=== PATIENT | male | born 1980 | race Hispanic/Latino ===

== ENCOUNTER 2019-12-24 02:12 | Inpatient (IN) | payer SELFPAY ==
[~2019-12-24] VITALS: Ht 172.7 cm; Wt 93.8 kg
[2019-12-24] MEDS ORDERED: ONDANSETRON HCL 4 MG/2 ML VIAL ONE (02:35)
[2019-12-24 02:55] LABS: BASOPHILS % (AUTO) 0.4 % (0.0-5.0); EOSINOPHILS % (AUTO) 0.3 % (0.0-8.0); HEMATOCRIT 35.4 % (42-54); LYMPHOCYTES % (AUTO) 17.3 % (21.0-51.0); MEAN CORPUSCULAR HEMOGLOBIN 47.2 pg (27.0-33.0); MEAN CORPUSCULAR HGB CONC 49.7 g/dL (32.0-36.0); MEAN CORPUSCULAR VOLUME 94.9 fL (79-99); MONOCYTES % (AUTO) 4.4 % (3.0-13.0); NEUTROPHILS % (AUTO) 77.1 % (40.0-77.0); PLATELET COUNT (AUTO) 167 K/uL (130-400); RED BLOOD CELL COUNT(AUTO) 3.73 MIL/uL (4.50-6.20); RED CELL DISTRIBUTION WIDTH 13.3 % (11.0-15.5); WHITE BLOOD COUNT (AUTO) 9.5 K/uL (4.8-10.8)
[2019-12-24 02:58] LABS: APPEARANCE,URINE Clear (CLEAR); BILIRUBIN,URINE Negative (NEGATIVE); COLOR,URINE Yellow (YELLOW); GLUCOSE, URINE (UA) Negative (NEGATIVE); KETONES,URINE Negative (NEGATIVE); LEUKOCYTE ESTERASE ,URINE Negative (NEGATIVE); NITRATE,URINE Negative (NEGATIVE); OCCULT BLOOD,URINE Negative (NEGATIVE); PH,URINE 5.5 (5.0-8.0); PROTEIN,URINE Negative (NEGATIVE); UROBILINOGEN,URINE 0.2 mg/dL (0.2-1.0)
[2019-12-24 03:09] LABS: POTASSIUM 4.4 mmol/L (3.5-5.1)
[2019-12-24 03:58] LABS: BILIRUBIN,TOTAL 0.5 mg/dL (0.2-1.0); CREATININE 0.9 mg/dL (0.5-1.5)
[2019-12-24 04:00] LABS: ALBUMIN 3.2 g/dL (3.5-5.0); TOTAL PROTEIN, SERUM 5.8 g/dL (6.0-8.3)
[2019-12-24] MEDS ORDERED: MORPHINE SULFATE 4 MG/1ML SYG ONE ×2 (04:27→06:56)
[2019-12-24] MEDS ORDERED: LACTULOSE 20 GM/30 ML UDCUP PO PRN (05:45)
[2019-12-24] MEDS ORDERED: MORPHINE SULFATE 2 MG/ML 1ML SYG IV PRN (05:45)
[2019-12-24] MEDS ORDERED: ACETAMINOPHEN 325 MG TAB PO PRN ×2 (05:45)
[2019-12-24 05:46] LABS: AMPHET/METH SCREEN,URINE NEGATIVE (NEGATIVE); BARBITURATE SCREEN, URINE NEGATIVE (NEGATIVE); BENZODIAZEPINES SCREEN,URINE NEGATIVE (NEGATIVE); CANNABINOID SCREEN,URINE POSITIVE (NEGATIVE); COCAINE SCREEN,URINE POSITIVE (NEGATIVE); OPIATE SCREEN,URINE NEGATIVE (NEGATIVE); PHENCYCLIDINE SCREEN,URINE NEGATIVE (NEGATIVE)
[2019-12-24] MEDS ORDERED: PHARMACY COMMUNICATION MISC PRN (06:00)
[2019-12-24] MEDS ORDERED: LORAZEPAM 2 MG/ML 1 ML VIAL IVP PRN ×2 (06:00)
[2019-12-24] MEDS ORDERED: CHLORDIAZEPOXIDE HCL 25 MG CAP PO PRN ×2 (06:00)
[2019-12-24 08:00] VITALS: BP 148/91
--- NOTE | 2019-12-24 08:00 | NUR ---
ADMITTED FROM ED VIA STRETCHER. AAOX3, RESP.'S EVEN AND UNLABORED. DENIES ANY CURRENT PAIN, DENIES ANY SOB. ORIENTED TO ROOM AND SURROUNDINGS. COMPLETE ASSESSMENT DONE. CALL LIGHT WITHIN REACH, VERBALIZED ABILITY TO USE. BED LOW, SIDE RAILS UP X2.
[2019-12-24] MEDS ORDERED: THIAMINE HCL 100 MG/ML 2ML VIAL IM SCH (09:00)
[2019-12-24] MEDS: SODIUM CHLORIDE 0.9% 1000ML 1,000 ML IV SCH ×4 (09:05→21:32)
[2019-12-24] MEDS: FOLIC ACID 1 MG TABLET PO SCH (09:05)
[2019-12-24] MEDS: MULTIVITAMIN TABLET PO SCH (09:05)
[2019-12-24] MEDS: FAMOTIDINE/PF 20 MG/2 ML VIAL IV SCH ×2 (09:06→21:14)
[2019-12-24] MEDS: ENOXAPARIN SODIUM 40 MG/0.4 ML SYRINGE SQ SCH (09:06)
[2019-12-24] MEDS: THIAMINE HCL 100 MG/ML 2ML VIAL IV SCH (10:00)
[2019-12-24 11:47] VITALS: BP 114/73
--- NOTE | 2019-12-24 13:51 | NUR ---
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 Hx drinking/drugs. counselled, states is registered w [facility]. Advised Re Good Rx, verbalized understanding. lives w girlfriend, different from face sheet - updated. dc plan home Addendum: 12/24/19 at 1357 by TYLER CAMEJO RN CM Amended: Links added.
[2019-12-24 16:12] VITALS: BP 113/80
[2019-12-24] MEDS ORDERED: HYDROMORPHONE HCL 0.5 MG/0.5 ML ML ONE (17:19)
[2019-12-24 20:03] VITALS: BP 123/77
[2019-12-24] MEDS: HYDROMORPHONE HCL 2 MG/ML VIAL IVP PRN (21:21)
--- NOTE | 2019-12-24 22:15 | NUR ---
[facility] called pt to transfer in ICU as ordered by Dr. Moreno for Insulin drip. Also ordered to consult Pulmonology in AM ( 12/25/19).
--- NOTE | 2019-12-24 22:35 | NUR ---
Informed housekeeper caregiver regarding order of transfer to ICU. To call back once room is available.
[2019-12-24 23:38] VITALS: BP 104/62
[2019-12-25] VITALS (13 sets, daily range): BP systolic 93–110; BP diastolic 57–72
--- NOTE | 2019-12-25 00:10 | NUR ---
K+ : 3.2 On-call hospitalist made aware with an order to place pt on potassium protocol. Addendum: 12/25/19 at 0543 by DANIEL MERCADO RN RN K+ : 3.0 not 3.2
[2019-12-25] MEDS: POTASSIUM CHLORIDE 20MEQ/100ML 100 ML IV PRN ×4 (00:25→19:59)
[2019-12-25] MEDS: LIDOCAINE HCL-MPF 1% 2ML VIAL IV PRN ×3 (00:26→19:59)
[2019-12-25] MEDS: HYDROMORPHONE HCL 2 MG/ML VIAL IVP PRN ×3 (01:32→19:58)
[2019-12-25 01:47] LABS: ALBUMIN 2.7 g/dL (3.5-5.0); CREATININE 1.2 mg/dL (0.5-1.5); TOTAL PROTEIN, SERUM 7.2 g/dL (6.0-8.3)
--- NOTE | 2019-12-25 02:10 | NUR ---
Sinus Tach: 130's Informed Jaida Brantley NP thru phone that pt sustaining HR of 130's even after Dilaudid 1mg via IV prn was given for pain at 0132. Ordered to give Lopressor ( Metoprolol) 5 mg IV x 1 dose only.
[2019-12-25] MEDS ORDERED: METOPROLOL TARTRATE 1 MG/ML 5ML VIAL IV ONE (02:27)
[2019-12-25] MEDS ORDERED: METOPROLOL TARTRATE 1 MG/ML 5ML VIAL IV SCH (02:30)
[2019-12-25] MEDS ORDERED: ACETAMINOPHEN 650 MG SUPPOSITORY RC PRN (03:15)
[2019-12-25] MEDS ORDERED: ACETAMINOPHEN 650 MG SUPPOSITORY RC ONE (03:23)
[2019-12-25] MEDS: SODIUM CHLORIDE 0.9% 1000ML 1,000 ML IV SCH ×2 (03:26→13:32)
[2019-12-25 04:18] LABS: BASOPHILS % (AUTO) 0.1 % (0.0-5.0); EOSINOPHILS % (AUTO) 0.3 % (0.0-8.0); HEMATOCRIT 34.4 % (42-54); LYMPHOCYTES % (AUTO) 9.2 % (21.0-51.0); MEAN CORPUSCULAR VOLUME 96.4 fL (79-99); NEUTROPHILS % (AUTO) 85.7 % (40.0-77.0); PLATELET COUNT (AUTO) 148 K/uL (130-400); RED BLOOD CELL COUNT(AUTO) 3.57 MIL/uL (4.50-6.20); RED CELL DISTRIBUTION WIDTH 13.8 % (11.0-15.5); WHITE BLOOD COUNT (AUTO) 13.6 K/uL (4.8-10.8)
[2019-12-25 04:23] LABS: MEAN CORPUSCULAR HEMOGLOBIN 32.2 pg (27.0-33.0); MEAN CORPUSCULAR HGB CONC 33.4 g/dL (32.0-36.0)
[2019-12-25 04:35] LABS: POTASSIUM 3.6 mmol/L (3.5-5.1)
--- NOTE | 2019-12-25 05:04 | NUR ---
Report given to Mr. Benjamin RN regarding the order for transfer ( For insulin drip due to HTG) and pt current condition.
--- NOTE | 2019-12-25 05:08 | NUR ---
Jaida Brantley NP called to tell the typewriter aligner that he placed pt on Antibiotic treatment ( zosyn ) , CXR in AM. Blueprint Assembler asked the type of Insulin SS the pt will be on with a reply of half SS for the meantime. ICU Staff ( Mr. Alexander , RN) made aware.
[2019-12-25 05:18] LABS: CREATININE 0.8 mg/dL (0.5-1.5)
--- NOTE | 2019-12-25 05:20 | NUR ---
Transferred to ICU with his belongings. Pt agreed and verbalized understanding. Fully awake and responsive. Distress / discomfort not noted.
[2019-12-25] MEDS: ZOSYN 3.375GM+NS 50ML 50 ML IV SCH ×3 (06:36→21:03)
[2019-12-25] MEDS: INSULIN HUMULIN R 100 UNIT/ML 3ML SQ SCH ×5 (06:52→22:09)
[2019-12-25] MEDS: FOLIC ACID 1 MG TABLET PO SCH (09:00)
[2019-12-25] MEDS: MULTIVITAMIN TABLET PO SCH (09:00)
[2019-12-25] MEDS: THIAMINE HCL 100 MG/ML 2ML VIAL IV SCH (09:33)
[2019-12-25] MEDS: FAMOTIDINE/PF 20 MG/2 ML VIAL IV SCH ×2 (09:33→20:07)
[2019-12-25] MEDS: ENOXAPARIN SODIUM 40 MG/0.4 ML SYRINGE SQ SCH (09:34)
[2019-12-25 10:16] LABS: POTASSIUM 4.2 mmol/L (3.5-5.1)
[2019-12-25 10:42] LABS: CREATININE 0.9 mg/dL (0.5-1.5)
[2019-12-25] MEDS: HYDROMORPHONE HCL 0.5 MG/0.5 ML ML IVP PRN (10:52)
[2019-12-25] MEDS: INSULIN REGULAR, HUMAN 3ML 100 UNIT in SODIUM CHLORIDE 0.9% 99 ML IV PRN ×2 (10:58)
[2019-12-25] MEDS: D5W-1/2 NS/20MEQ KCL 1,000 ML IV SCH ×3 (10:58→22:58)
[2019-12-25 16:51] LABS: CARBON DIOXIDE 23 mmol/L (21-32); CHLORIDE 97 mmol/L (101-111); GLUCOSE,RANDOM 173 mg/dL (70-105); POTASSIUM 3.5 mmol/L (3.5-5.1); SODIUM SERUM 130 mmol/L (136-145); UREA NITROGEN, BLOOD 4 mg/dL (7-18)
[2019-12-25 17:01] LABS: CREATININE 0.7 mg/dL (0.5-1.5); GLOMERULAR FILTR. RATE CALC 134 mL/min (>60)
[2019-12-25 21:45] LABS: CREATININE 1.5 mg/dL (0.5-1.5); POTASSIUM 3.7 mmol/L (3.5-5.1)
[2019-12-25] MEDS: ONDANSETRON HCL 4 MG/2 ML VIAL IV PRN (22:53)
[2019-12-26] VITALS (20 sets, daily range): BP systolic 90–121; BP diastolic 56–82
[2019-12-26] MEDS: HYDROMORPHONE HCL 2 MG/ML VIAL IVP PRN ×3 (00:40→21:30)
[2019-12-26] MEDS: POTASSIUM CHLORIDE 20MEQ/100ML 100 ML IV PRN (00:41)
[2019-12-26] MEDS: LIDOCAINE HCL-MPF 1% 2ML VIAL IV PRN (00:41)
[2019-12-26 04:33] LABS: BASOPHILS % (AUTO) 0.3 % (0.0-5.0); HEMATOCRIT 34.8 % (42-54); LYMPHOCYTES % (AUTO) 13.2 % (21.0-51.0); MEAN CORPUSCULAR HEMOGLOBIN 34.3 pg (27.0-33.0); MEAN CORPUSCULAR HGB CONC 34.8 g/dL (32.0-36.0); MEAN CORPUSCULAR VOLUME 98.6 fL (79-99); MONOCYTES % (AUTO) 4.8 % (3.0-13.0); NEUTROPHILS % (AUTO) 79.7 % (40.0-77.0); PLATELET COUNT (AUTO) 151 K/uL (130-400); RED BLOOD CELL COUNT(AUTO) 3.53 MIL/uL (4.50-6.20); RED CELL DISTRIBUTION WIDTH 14.4 % (11.0-15.5); WHITE BLOOD COUNT (AUTO) 14.5 K/uL (4.8-10.8)
[2019-12-26 05:01] LABS: ALBUMIN 2.1 g/dL (3.5-5.0); BILIRUBIN,TOTAL 0.9 mg/dL (0.2-1.0); CREATININE 1.6 mg/dL (0.5-1.5); MAGNESIUM 2.2 mg/dL (1.80-2.40); PHOSPHORUS 1.4 mg/dL (2.5-4.9); POTASSIUM 4.9 mmol/L (3.5-5.1); TOTAL PROTEIN, SERUM 7.1 g/dL (6.0-8.3)
[2019-12-26] MEDS: ZOSYN 3.375GM+NS 50ML 50 ML IV SCH ×3 (05:05→22:11)
[2019-12-26] MEDS ORDERED: SOD PHOSPHATE 45 MMOL/15 ML VI 15 MMOL in SODIUM CHLORIDE 0.9% 250 ML IV PRN (07:15)
--- NOTE | 2019-12-26 07:40 | NUR ---
ASSESSMENT Resting quietly in bed. ST on tele. Strong apical heart tones. Skin is warm, dry. PIV x2 patent. VS as recorded. Diminished bibasilar breath sounds. Abd tender with palpation. Normoactive bowel sounds. Denies nausea. Remains NPO. Due to void this AM. Able to reposition self in bed. Assessment completed/recorded. Questions addressed. Needed items with reach. Will medicate for reported abd discomfort. Is in no acute distress.
[2019-12-26] MEDS: FOLIC ACID 1 MG TABLET PO SCH (09:15)
[2019-12-26] MEDS: MULTIVITAMIN TABLET PO SCH (09:15)
[2019-12-26] MEDS: THIAMINE HCL 100 MG/ML 2ML VIAL IV SCH (09:16)
[2019-12-26] MEDS: ENOXAPARIN SODIUM 40 MG/0.4 ML SYRINGE SQ SCH (09:16)
[2019-12-26] MEDS: FAMOTIDINE/PF 20 MG/2 ML VIAL IV SCH ×2 (09:16→20:53)
[2019-12-26] MEDS: D5W-1/2 NS/20MEQ KCL 1,000 ML IV SCH (09:25)
[2019-12-26] MEDS: INSULIN REGULAR, HUMAN 3ML 100 UNIT in SODIUM CHLORIDE 0.9% 99 ML IV PRN ×2 (09:26)
--- NOTE | 2019-12-26 10:00 | NUR ---
ROUNDS in to see pt - updated. Aware of recent lab values - pending repeat this afternoon. Aware of IVF rate and dose of insulin gtt. No additional orders received. Plan of care discussed. No complaints voiced by pt.
[2019-12-26 10:41] LABS: CREATININE 1.5 mg/dL (0.5-1.5); POTASSIUM 3.9 mmol/L (3.5-5.1)
[2019-12-26] MEDS: INSULIN HUMULIN R 100 UNIT/ML 3ML SQ SCH ×3 (11:30→21:00)
--- NOTE | 2019-12-26 11:40 | NUR ---
ASSESSMENT No acute changes in overall assessment. Pt is in no acute distress. PIVs 2 remain patent. Pt denies nausea. CIWA as documented. ST on tele. VS maintained. Needed items within reach.
--- NOTE | 2019-12-26 12:15 | NUR ---
STATUS IVFs now infusing at 275ml/hr to keep BS 100-200. PIV to LAC remains patent with brisk blood return.
[2019-12-26] MEDS: HYDROMORPHONE HCL 0.5 MG/0.5 ML ML IVP PRN ×2 (12:21→16:07)
--- NOTE | 2019-12-26 14:00 | NUR ---
STATUS Care of pt endorsed to MADALYN Ty RN.
[2019-12-26 16:01] LABS: CREATININE 1.3 mg/dL (0.5-1.5); POTASSIUM 4.2 mmol/L (3.5-5.1)
[2019-12-26] MEDS: ONDANSETRON HCL 4 MG/2 ML VIAL IV PRN (20:53)
[2019-12-27] VITALS (19 sets, daily range): BP systolic 92–123; BP diastolic 55–85
[2019-12-27] MEDS: D5W-1/2 NS/20MEQ KCL 1,000 ML IV SCH ×4 (01:17→17:43)
[2019-12-27 04:10] LABS: CREATININE 1.1 mg/dL (0.5-1.5); MAGNESIUM 1.7 mg/dL (1.80-2.40); PHOSPHORUS 2.3 mg/dL (2.5-4.9); POTASSIUM 4.1 mmol/L (3.5-5.1)
[2019-12-27] MEDS ORDERED: MAGNESIUM 2GM PREMIX 50ML 50 ML IV SCH (04:30)
[2019-12-27] MEDS: HYDROMORPHONE HCL 2 MG/ML VIAL IVP PRN (04:49)
[2019-12-27] MEDS: ZOSYN 3.375GM+NS 50ML 50 ML IV SCH ×2 (06:01→13:28)
[2019-12-27] MEDS: INSULIN HUMULIN R 100 UNIT/ML 3ML SQ SCH ×3 (06:02→16:30)
[2019-12-27] MEDS ORDERED: FENOFIBRATE NANOCRYSTALLIZED 145 MG TAB PO SCH (09:15)
[2019-12-27] MEDS: FAMOTIDINE/PF 20 MG/2 ML VIAL IV SCH (09:38)
[2019-12-27] MEDS: ENOXAPARIN SODIUM 40 MG/0.4 ML SYRINGE SQ SCH (09:41)
[2019-12-27] MEDS: ONDANSETRON HCL 4 MG/2 ML VIAL IV PRN ×2 (09:42→16:12)
[2019-12-27] MEDS: HYDROMORPHONE HCL 0.5 MG/0.5 ML ML IVP PRN ×2 (09:43→13:32)
[2019-12-27] MEDS: MULTIVITAMIN TABLET PO SCH (09:48)
[2019-12-27 12:49] LABS: BASOPHILS % (AUTO) 0.4 % (0.0-5.0); HEMATOCRIT 31.5 % (42-54); LYMPHOCYTES % (AUTO) 12.4 % (21.0-51.0); MEAN CORPUSCULAR HEMOGLOBIN 33.5 pg (27.0-33.0); MEAN CORPUSCULAR HGB CONC 34.6 g/dL (32.0-36.0); MEAN CORPUSCULAR VOLUME 96.9 fL (79-99); MONOCYTES % (AUTO) 4.9 % (3.0-13.0); NEUTROPHILS % (AUTO) 80.2 % (40.0-77.0); PLATELET COUNT (AUTO) 149 K/uL (130-400); RED BLOOD CELL COUNT(AUTO) 3.25 MIL/uL (4.50-6.20); RED CELL DISTRIBUTION WIDTH 14.5 % (11.0-15.5); WHITE BLOOD COUNT (AUTO) 10.6 K/uL (4.8-10.8)
--- NOTE | 2019-12-27 18:18 | NUR ---
Pt stated he wanted to leave AMA. Stated he hasn't eaten for three days. Stated he feels sick and also stated he feels fine. Appeared restless, anxious, discontent. Offered medication to alleviate symptoms, pt refused medications. Risks of leaving AMA up to and including explained to pt. Pt able to verbalize understanding of risks. Benefits of staying to complete treatment explained to pt. Pt able to verbalize understanding of benefits of completing treatment but remained unwilling to stay. Attending MD and warehouse sorter notified of pt's intention to leave AMA. Pt left AMA.
[2019-12-27] MEDS ORDERED: ATORVASTATIN CALCIUM 20 MG TABLET PO SCH (21:00)
== END 2019-12-27 18:30 | disposition left against medical advice (07) | DRG 642 ==
LOC: EDH 02:12 → EDHIP 02:13 → 4CH 07:59 → DAHIP 12-25 05:09
PROVIDERS: ADMIT Internal Medicine; ATTEND Internal Medicine
DX: E78.1 Pure hyperglyceridemia (principal); K85.80 Other acute pancreatitis without necrosis or infection; E87.1 Hypo-osmolality and hyponatremia; F14.90 Cocaine use, unspecified, uncomplicated
CPT/HCPCS: 36415; 71046; 76705; 80048; 80053; 80061; 80305; 81003; 82270; 82948; 83036; 83605; 83690; 83735; 84100; 84145; 84478; 85025; 87040; 99291; G0378; G0480; J1170; J1650; J1815; J2270; J2405; J2543; J3411; J3475; J3480; J3490; J7030

== ENCOUNTER 2022-09-18 23:45 | Inpatient (IN) | payer OTHER ==
[~2022-09-18] VITALS: Ht 172.7 cm; Wt 95.3 kg
[2022-09-19 00:31] LABS: AMPHET/METH SCREEN,URINE POSITIVE (NEGATIVE); BARBITURATE SCREEN, URINE NEGATIVE (NEGATIVE); BENZODIAZEPINES SCREEN,URINE NEGATIVE (NEGATIVE); CANNABINOID SCREEN,URINE POSITIVE (NEGATIVE); COCAINE SCREEN,URINE POSITIVE (NEGATIVE); CREATININE 1.2 mg/dL (0.5-1.5); OPIATE SCREEN,URINE NEGATIVE (NEGATIVE); PHENCYCLIDINE SCREEN,URINE NEGATIVE (NEGATIVE); POTASSIUM 3.6 mmol/L (3.5-5.1)
[2022-09-19 00:35] LABS: ALBUMIN 3.9 g/dL (3.5-5.0); TOTAL PROTEIN, SERUM 8.7 g/dL (6.0-8.3)
[2022-09-19 00:43] LABS: BASOPHILS % (AUTO) 0.3 % (0.0-5.0); EOSINOPHILS % (AUTO) 0.2 % (0.0-8.0); HEMATOCRIT 46.4 % (42-54); LYMPHOCYTES % (AUTO) 8.2 % (21.0-51.0); MEAN CORPUSCULAR HEMOGLOBIN 32.5 pg (27.0-33.0); MEAN CORPUSCULAR HGB CONC 34.7 g/dL (32.0-36.0); MEAN CORPUSCULAR VOLUME 93.5 fL (79-99); MONOCYTES % (AUTO) 8.5 % (3.0-13.0); NEUTROPHILS % (AUTO) 82.3 % (40.0-77.0); PLATELET COUNT (AUTO) 317 K/uL (130-400); RED BLOOD CELL COUNT(AUTO) 4.96 MIL/uL (4.50-6.20); RED CELL DISTRIBUTION WIDTH 13.4 % (11.0-15.5); WHITE BLOOD COUNT (AUTO) 18.3 K/uL (4.8-10.8)
[2022-09-19] MEDS ORDERED: IOHEXOL 350 MG/ML 100ML INFUS..BTL IV ONE (00:58)
[2022-09-19] MEDS ORDERED: 0.9%NACL 1000ML 2,000 ML IV ONE (01:00)
[2022-09-19] MEDS ORDERED: ZOSYN 3.375GM +NS 50ML IVPB ONE (01:00)
[2022-09-19] MEDS ORDERED: MORPHINE 2 MG SYG IM ONE (01:00)
[2022-09-19] MEDS ORDERED: MAGNESIUM 2GM PREMIX 50ML 50 ML IV PRN (02:00)
[2022-09-19] MEDS ORDERED: ACETAMINOPHEN 325 MG TAB PO PRN ×2 (02:00)
[2022-09-19] MEDS ORDERED: ONDANSETRON 4MG INJ IV PRN (02:00)
[2022-09-19] MEDS ORDERED: POTASSIUM CHLORIDE 20MEQ/100ML 100 ML IV PRN (02:00)
[2022-09-19] MEDS ORDERED: LIDOCAINE HCL-MPF 1% 2ML VIAL IV PRN (02:00)
[2022-09-19] MEDS ORDERED: MORPHINE 2 MG SYG IV PRN (02:00)
[2022-09-19] MEDS ORDERED: LACTATED RINGERS 1000ML 2,052 ML IV ONE (02:30)
[2022-09-19] MEDS ORDERED: LORAZEPAM 2 MG/ML 1 ML VIAL IVP PRN (02:30)
[2022-09-19] MEDS ORDERED: PHARMACY COMMUNICATION MISC PRN (02:30)
[2022-09-19] MEDS: LACTATED RINGERS 1000ML 1,000 ML IV SCH ×3 (02:39→21:18)
[2022-09-19 02:47] LABS: APPEARANCE,URINE CLEAR (CLEAR); BILIRUBIN,URINE NEGATIVE (NEGATIVE); COLOR,URINE LIGHT-ORANGE (YELLOW); GLUCOSE, URINE (UA) NEGATIVE (NEGATIVE); KETONES,URINE 20 mg/dL (NEGATIVE); LEUKOCYTE ESTERASE ,URINE NEGATIVE Leu/uL (NEGATIVE); NITRATE,URINE NEGATIVE (NEGATIVE); OCCULT BLOOD,URINE NEGATIVE (NEGATIVE); PH,URINE 5.5 (5.0-8.0); PROTEIN,URINE 30 mg/dL (NEGATIVE); UROBILINOGEN,URINE 0.2 mg/dL (0.2-1.0)
[2022-09-19 02:52] LABS: INR 0.93 (0.85-1.15); PROTHROMBIN TIME 9.8 SEC (9.6-11.6)
[2022-09-19 02:53] LABS: PARTIAL THROMBOPLASTIN TIME 27.3 SEC (26.3-35.5)
[2022-09-19] MEDS: MORPHINE 4 MG SYG IV PRN ×2 (03:36→09:06)
[2022-09-19 04:24] VITALS: BP 126/74
[2022-09-19] MEDS: ZOSYN 3.375GM+NS 50ML 50 ML IVPB SCH ×3 (05:00→21:06)
[2022-09-19 08:00] VITALS: BP 110/68
[2022-09-19] MEDS: ENOXAPARIN SODIUM 40 MG/0.4 ML SYRINGE SQ SCH (09:05)
[2022-09-19] MEDS: FAMOTIDINE 20MG VIAL IV SCH ×2 (09:05→21:06)
[2022-09-19 12:00] VITALS: BP 107/72
[2022-09-19] MEDS: KETOROLAC 30MG VIAL (30MG/ML) IVP PRN ×2 (12:45→21:06)
[2022-09-19 16:00] VITALS: BP 114/75
[2022-09-19 19:51] VITALS: BP 121/73
[2022-09-20] VITALS (7 sets, daily range): BP systolic 108–123; BP diastolic 72–83
[2022-09-20] MEDS: ZOSYN 3.375GM+NS 50ML 50 ML IVPB SCH ×3 (04:36→21:20)
[2022-09-20] MEDS: LACTATED RINGERS 1000ML 1,000 ML IV SCH ×2 (04:41→13:06)
[2022-09-20 05:00] LABS: BASOPHILS % (AUTO) 0.3 % (0.0-5.0); LYMPHOCYTES % (AUTO) 10.7 % (21.0-51.0); MEAN CORPUSCULAR HEMOGLOBIN 32.9 pg (27.0-33.0); MEAN CORPUSCULAR HGB CONC 33.5 g/dL (32.0-36.0); MEAN CORPUSCULAR VOLUME 98.1 fL (79-99); MONOCYTES % (AUTO) 7.2 % (3.0-13.0); NEUTROPHILS % (AUTO) 80.1 % (40.0-77.0); PLATELET COUNT (AUTO) 223 K/uL (130-400); RED BLOOD CELL COUNT(AUTO) 3.77 MIL/uL (4.50-6.20); RED CELL DISTRIBUTION WIDTH 13.4 % (11.0-15.5); WHITE BLOOD COUNT (AUTO) 12.2 K/uL (4.8-10.8)
[2022-09-20] MEDS: KETOROLAC 30MG VIAL (30MG/ML) IVP PRN ×3 (05:26→21:20)
[2022-09-20 05:28] LABS: ALBUMIN 2.5 g/dL (3.5-5.0); MAGNESIUM 2.1 mg/dL (1.80-2.40); POTASSIUM 3.9 mmol/L (3.5-5.1); TOTAL PROTEIN, SERUM 6.6 g/dL (6.0-8.3)
[2022-09-20] MEDS: FAMOTIDINE 20MG VIAL IV SCH ×2 (09:26→21:19)
[2022-09-20] MEDS: ENOXAPARIN SODIUM 40 MG/0.4 ML SYRINGE SQ SCH (09:26)
[2022-09-21 04:03] VITALS: BP 116/87
[2022-09-21] MEDS: ZOSYN 3.375GM+NS 50ML 50 ML IVPB SCH (04:14)
[2022-09-21] MEDS: LACTATED RINGERS 1000ML 1,000 ML IV SCH ×2 (04:17→05:06)
[2022-09-21 05:43] LABS: BASOPHILS % (AUTO) 0.4 % (0.0-5.0); EOSINOPHILS % (AUTO) 3.2 % (0.0-8.0); HEMATOCRIT 33.5 % (42-54); LYMPHOCYTES % (AUTO) 19.3 % (21.0-51.0); MEAN CORPUSCULAR HEMOGLOBIN 32.6 pg (27.0-33.0); MEAN CORPUSCULAR HGB CONC 33.1 g/dL (32.0-36.0); MEAN CORPUSCULAR VOLUME 98.5 fL (79-99); MONOCYTES % (AUTO) 7.8 % (3.0-13.0); NEUTROPHILS % (AUTO) 68.5 % (40.0-77.0); PLATELET COUNT (AUTO) 230 K/uL (130-400); RED CELL DISTRIBUTION WIDTH 13.1 % (11.0-15.5); WHITE BLOOD COUNT (AUTO) 7.8 K/uL (4.8-10.8)
[2022-09-21 05:56] LABS: ALBUMIN 2.4 g/dL (3.5-5.0); CREATININE 1.1 mg/dL (0.5-1.5); POTASSIUM 3.7 mmol/L (3.5-5.1); TOTAL PROTEIN, SERUM 6.6 g/dL (6.0-8.3)
[2022-09-21 07:50] VITALS: BP 124/86
[2022-09-21] MEDS ORDERED: LEVO-70 PO (08:00)
[2022-09-21] MEDS ORDERED: METR-172 PO (08:00)
[2022-09-21] MEDS: ENOXAPARIN SODIUM 40 MG/0.4 ML SYRINGE SQ SCH (09:00)
[2022-09-21] MEDS: FAMOTIDINE 20MG VIAL IV SCH (09:12)
== END 2022-09-21 10:25 | disposition home or self-care (01) | DRG 872 ==
LOC: EDH 23:45 → EDHIP 23:46 → 3DH 09-19 03:51
PROVIDERS: ADMIT Internal Medicine; ATTEND Internal Medicine
DX: A41.9 Sepsis, unspecified organism (principal); K57.32 Diverticulitis of large intestine without perforation or abscess without bleeding; F12.10 Cannabis abuse, uncomplicated; Z20.822 Contact with and (suspected) exposure to COVID-19; F14.10 Cocaine abuse, uncomplicated; F15.90 Other stimulant use, unspecified, uncomplicated; F17.210 Nicotine dependence, cigarettes, uncomplicated; Z80.0 Family history of malignant neoplasm of digestive organs
CPT/HCPCS: 36415; 74177; 80053; 80305; 81003; 82270; 83605; 83690; 83735; 84100; 84145; 84484; 85025; 85610; 85730; 86850; 86900; 86901; 87040; 87635; 93005; G0378; J1650; J1885; J2270; J2543; J3490; J7030; J7120; Q9967